=== PATIENT | male | born 1965 | race Caucasian/White ===

== ENCOUNTER 2021-10-02 10:19 | Outpatient (CLI) | payer BC, SELFPAY ==
[2021-10-02 10:40] VITALS: BP 122/86; PULSE 72; RESP 20; TEMP 36.6; O2SAT 94; BMI 33.9
[2021-10-02 11:00] VITALS: BP 116/70; PULSE 75; RESP 20; TEMP 36.4; O2SAT 94
[2021-10-02 12:27] VITALS: BP 110/55; PULSE 72; RESP 20; TEMP 36.4; O2SAT 94
== END 2021-10-02 10:20 | disposition home or self-care (01) ==
LOC: OPS 10:24
PROVIDERS: Visit Provider Family Medicine
DX: U07.1 COVID-19 (principal)
CPT/HCPCS: 96365